=== PATIENT | female | born 1965 | race African-American/Black ===

== ENCOUNTER → 2020-09-30 | Outpatient (CLI) | payer OTHER ==
[~2020-09-30] MED LIST: AMOXICILLIN875 MG PO; IBUPROFEN 600600 M1 PO; IBUPROFEN 800800 M1 PO; LISINOPRIL20 MG PO; LORTABELXR PO; NORCO 5-325 TA1 EACH PO
== END ==
LOC: BC 14:38
PROVIDERS: ATTEND Family Medicine
DX: Z12.31 Encounter for screening mammogram for malignant neoplasm of breast (principal)